=== PATIENT | female | born 1950 | race Caucasian/White ===

== ENCOUNTER → 2016-05-18 18:55 | Outpatient (CLI) | payer OTHER ==
[2016-01-18 17:16] VITALS: BMI 24.6
[~2016-05-18 18:55] MED LIST: ASPIRIN 81 MG E81 MG PO; ATIVAN0.5 MG PO; ATIVAN1 MG PO; BAYER CHEWABLE81 MG PO; IMDUR30 MG PO; NITROSTAT0.4 MG SL; PLAVIX75 MG PO; PREDNISONE20 MG PO; PROTONIX40 MG PO
== END | disposition home or self-care (01) ==
LOC: D.LABREF 18:55
DX: N39.0 Urinary tract infection, site not specified (principal)

== ENCOUNTER → 2016-06-02 11:54 | Outpatient (CLI) | payer OTHER ==
[2016-01-18 17:16] VITALS: BMI 24.6
== END | disposition home or self-care (01) ==
LOC: D.LABREF 11:54
DX: R31.9 Hematuria, unspecified (principal)

== ENCOUNTER → 2016-12-08 18:28 | Outpatient (CLI) | payer OTHER ==
[2016-01-18 17:16] VITALS: BMI 24.6
== END | disposition home or self-care (01) ==
LOC: D.LABREF 18:28
DX: L98.9 Disorder of the skin and subcutaneous tissue, unspecified (principal)

== ENCOUNTER → 2017-01-19 11:40 | Outpatient (CLI) | payer OTHER ==
[2016-01-18 17:16] VITALS: BMI 24.6
== END | disposition home or self-care (01) ==
LOC: D.LABREF 11:40
DX: J40 Bronchitis, not specified as acute or chronic (principal)

== ENCOUNTER → 2017-01-26 08:45 | Outpatient (CLI) | payer OTHER ==
[2016-01-18 17:16] VITALS: BMI 24.6
== END | disposition home or self-care (01) ==
LOC: D.RT 10-26 09:00
DX: J44.9 Chronic obstructive pulmonary disease, unspecified (principal)

== ENCOUNTER 2018-03-24 09:42 | Outpatient (CLI) | payer OTHER ==
[~2018-03-24] VITALS: Ht 157.5 cm; Wt 57.7 kg
--- NOTE | ~2018-03-24 | MORECARE ---
CASE MANAGEMENT DISCHARGE SUMMARY PATIENT: ROBINSON DOUGLAS JHONNY UNIT: [id number] ADM DATE: 03/24/18 AGE: 67 : 52 SEX: F ROOM/BED: D.3356 AUTHOR: FRANCESCO LEVINE PHYSICIAN: REFERRING PHYSICIAN: LENORA RANGEL DO DATE OF SERVICE: 03/24/18 Discharge Plan Patient Name: ROBINSON DOUGLAS Facility: [facility]:[place] : 1950 Planned Disposition: Home Anticipated Discharge Date: Discharge Date: Expected LOS: Initial Reviewer: [email or web address] Initial Review Date: 03/24/2018 Generated: 03/24/18 2:26 pm DCP- Discharge Planning Updated by [email or web address]: Gloria Oliveira on 03/24/18 12:[address] Patient Name: ROBINSON DOUGLAS Admission Status: ER Accout number: [id number] Admission Date: 03-24-2018 : 1950 Admission Diagnosis: Attending: LENORA RANGEL Current LOS: 1 Anticipated DC Date: Planned Disposition: Home Primary Insurance: [employer] Discharge Planning Comments: CM SPOKE WITH PATIENT ABOUT DC PLANNING/NEEDS. STATES PLANS TO DC TO HOME WHEN DISCHARGED. STATES HAS NO NEEDS AND IS INDEPENDANT WITH ADL'S. CM WILL FOLLOW AND ASSIST NEEDED WITH DC PLANNING/NEEDS. Product Support Rep: Gloria Oliveira DCPIA - Discharge Planning Initial Assessment Updated by [email or web address]: Gloria Oliveira on 03/24/18 1:22 pm * Is the patient Alert and Oriented? Yes * PCP JUAN CARLOS * Pharmacy [facility] * Preadmission Environment Home Alone * ADLs Independent * Equipment None * List name and contact numbers for known caregivers / representatives who currently or will assist patient after discharge: MELIDA BROWN, FRIEND, * Community resources currently utilized None * Additional services required to return to the preadmission environment? No * Can the patient safely return to the preadmission environment? Yes * Has this patient been hospitalized within the prior 30 days at any hospital? No Last DP export: 03/24/18 12:19 Patient Name: ROBINSON DOUGLAS Page 17827 at 1327 All edits/amendments must be made on the electronic document DICTATION DATE: 03/24/18 132 MATERIALS SUPERVISOR: CATALINA 03/24/18 132 RPT#: [id number] DC DATE: STATUS: ADM IN [facility] [address] [place] [address] END OF REPORT
--- NOTE | ~2018-03-24 | MORECARE ---
CASE MANAGEMENT DISCHARGE SUMMARY PATIENT: ROBINSON DOUGLAS JHONNY UNIT: [id number] ADM DATE: 03/24/18 AGE: 67 : 52 SEX: F ROOM/BED: D.2116 AUTHOR: FRANCESCO LEVINE PHYSICIAN: REFERRING PHYSICIAN: LENORA RANGEL DO DATE OF SERVICE: 03/24/18 Discharge Plan Patient Name: ROBINSON DOUGLAS Facility: [facility]:[place] : 1950 Planned Disposition: Home Anticipated Discharge Date: Discharge Date: Expected LOS: Initial Reviewer: [email or web address] Initial Review Date: 03/24/2018 Generated: 03/24/18 2:19 pm Patient Name: ROBINSON DOUGLAS Page 40268 at 1319 All edits/amendments must be made on the electronic document DICTATION DATE: 03/24/18 1319 HOSPITAL CLINIC ASSISTANT: CATALINA 03/24/18 1319 RPT#: [id number] DC DATE: STATUS: ADM IN [facility] [address] [place] [address] END OF REPORT
--- NOTE | ~2018-03-24 | MORECARE ---
CASE MANAGEMENT DISCHARGE SUMMARY PATIENT: ROBINSON DOUGLAS JHONNY UNIT: [id number] ADM DATE: 03/24/18 AGE: 67 : 52 SEX: F ROOM/BED: D.2006 AUTHOR: FRANCESCO LEVINE PHYSICIAN: REFERRING PHYSICIAN: LENORA RANGEL DO DATE OF SERVICE: 03/26/18 Discharge Plan Patient Name: ROBINSON DOUGLAS Facility: [facility]:[place] : 1950 Planned Disposition: Home Anticipated Discharge Date: 03/25/18 Discharge Date: 03/25/2018 Expected LOS: 1 Initial Reviewer: [email or web address] Initial Review Date: 03/24/2018 Generated: 03/26/18 9:19 am DCP- Discharge Planning Updated by [email or web address]: Gloria Oliveira on 03/24/18 12:[address] Patient Name: ROBINSON DOUGALS Admission Status: ER Accout number: [id number] Admission Date: 03-24-2018 : 1950 Admission Diagnosis: Attending: LENORA RANGEL Current LOS: 1 Anticipated DC Date: Planned Disposition: Home Primary Insurance: [employer] Discharge Planning Comments: CM SPOKE WITH PATIENT ABOUT DC PLANNING/NEEDS. STATES PLANS TO DC TO HOME WHEN DISCHARGED. STATES HAS NO NEEDS AND IS INDEPENDANT WITH ADL'S. CM WILL FOLLOW AND ASSIST NEEDED WITH DC PLANNING/NEEDS. Dynamometer Tuner: Gloria Oliveira DCPIA - Discharge Planning Initial Assessment Updated by [email or web address]: Gloria Oliveira on 03/24/18 1:22 pm * Is the patient Alert and Oriented? Yes * PCP JUAN CARLOS * Pharmacy [facility] * Preadmission Environment Home Alone * ADLs Independent * Equipment None * List name and contact numbers for known caregivers / representatives who currently or will assist patient after discharge: MELIDA BROWN, FRIEND, * Community resources currently utilized None * Additional services required to return to the preadmission environment? No * Can the patient safely return to the preadmission environment? Yes * Has this patient been hospitalized within the prior 30 days at any hospital? No Last DP export: 03/24/18 12:27 Patient Name: ROBINSON DOUGLAS Page 60393 at 0819 All edits/amendments must be made on the electronic document DICTATION DATE: 03/26/18818 CUFF MATCHER: CATALINA 03/26/18818 RPT#: [id number] DC DATE:03/25/18 STATUS: DIS IN [facility] [address] [place] [address] END OF REPORT
--- NOTE | ~2018-03-24 | HEMODYNAMI ---
PATIENT:ROBINSON DOUGLAS MEDICAL RECORD: [id number] : [birth year] [id number] ADMISSION DATE: 03/24/18 Generatedon:03/25/201811:22 Patient name: ROBINSON DOUGLAS Patient #: [id number] SSN: : 1950 Date of study: 03/25/2018 Page: Of Hemodynamic Procedure Report Patient Data Patient Demographics Procedure consent was obtained First Name: ROBINSON Gender: Female Last Name: MISAEL : 1950 [facility] Initial: JHONNY Age: 67 year(s) Patient #: [id number] Race: Additional ID: [id number] Contact details Address: [address] [place] [address] State: [place] City: [place] Zip code: [address] Past Medical History Allergies Allergen Reaction Date Comments Reported Other allergy 01/19/2016 Red dye, Sulfa, Iodine Other allergy 03/25/2018 red dye, sulfa, iodine Admission Admission Data Admission Date: 03/24/2018 Admission Time: 11:57 Admit Source: Other Room #: D.2116 Lab Results Lab Result Date: 03/25/2018 Lab Result Time: 4:32 Biochemistry Name Units Result Min Max BUN mg/dl 14 --(--*-)-- 7 18 Creatinine mg/dl 0.7 --(*---)-- 0.6 1.3 CBC Name Units Result Min Max Hematocrit % 39.6 -*(----)-- 42 54 Hemoglobin g/dl 12.8 -*(----)-- 13.5 17.5 Procedure Procedure Types Cath Procedure Diagnostic Procedure C [facility] w/Coronaries PCI Procedure Coronary Stent Coronary Stent Initial Procedure Description Procedure Date Procedure Date: 03/25/2018 Procedure Start Time: 11:05 Procedure End Time: 11:17 Procedure Staff Name Function Jarret Caldera MD Performing Physician Elkin Banegas RT Monitor Lucy Sauer RT Marcel Ramires RN Nurse Procedure Data Cath Procedure Fluoroscopy Diagnostic fluoroscopy Total fluoroscopy Time: 1.3 time: 1.3 min min Diagnostic fluoroscopy Total fluoroscopy dose: dose: 70.7 mGy 70.7 mGy Contrast Material Contrast Material Type Amount (ml) Isovue 300 54 Entry Location Entry Primary Successful Side Size Upsize Upsize Entry Closure Succes sful Closure Location (Fr) 1 (Fr) 2 (Fr) Remarks Device Remarks Femoral Right 5 Fr 6 Fr Exoseal artery Short Estimated blood loss: 10 ml Diagnostic catheters Device Type Used For End Catheter Placement MULTIPACK Pigtail 5 Fr Procedure catheter MULTIPACK JL 4.0 5Fr Procedure catheter MULTIPACK 3DRC 5Fr Procedure catheter Procedure Complications No complications Procedure Medications Medication Administration Route Dosage Solumedrol I.V. 125 mg Oxygen etCO2 Nasal cannula 2 l/min Lidocaine 2% added to field 20 Heparin Flush Bag added to field 2 bags (1000units/500ml NS) 0.9% NaCl I.V. 100 ml/hr Zofran I.V. 4 mg Versed I.V. 2 mg Fentanyl I.V. 100 mcg Heparin Bolus I.V. 4000 units Integrilin (Bolus I.V. 5 ml 2mg/ml) Plavix P.O. 300 mg Versed I.V. 1 mg Hemodynamics Rest Heart Rate: 70 (bpm) Snapshots Pre Cath Intra NCS Post Cath Vital Signs Time Heart Resp SPO2 etCO2 NIBP (mmHg) Rhythm Pain Sedation Rate (ipm) (%) (mmHg) Status Level (bpm) 10:57:45 71 18 99 33.1 148/87(107) NSR 0 (11) 10(A) , No pain 11:02:03 73 17 98 31.6 139/81(101) NSR 0 (11) 10(A) , No pain 11:06:19 71 14 100 33.9 127/77(106) NSR 0 (11) 9(A) , No pain 11:10:33 73 14 99 12 133/78(110) NSR 0 (11) 9(A) , No pain 11:14:41 75 15 99 37.7 119/75(95) NSR 0 (11) 10(A) , No pain Medications Time Medication Route Dose Verified Delivered Reason Notes Effectiveness by by 10:55:55 Solumedrol I.V. 125 Jarret Ruiz Per physician mg Werner Ramires RN 10:56:05 Oxygen etCO2 2 Jarret Ruiz used for Nasal l/min Werner Ramires RN procedure cannula 10:56:12 Lidocaine 2% added 20ml Jarret Wheat for local to vial Werner Caldera MD anesthetic field 10:56:18 Heparin Flush added 2 Jarretalbert Wheat used for Bag to bags Werner Caldera MD procedure (1000units/500ml field NS) 10:56:28 0.9% NaCl I.V. 100 Jarret Ruiz Per physician ml/hr Werner Ramires RN 11:02:11 Zofran I.V. 4 mg Jarret Ruiz Per physician for n /v Werner Ramires RN 11:04:42 Versed I.V. 2 mg Jarret Ruiz for sedation Werner Ramires RN 11:04:50 Fentanyl I.V. 100 Jarret Ruiz for sedation mcg Werner Ramires RN 11:07:32 Versed I.V. 1 mg Jarret Ruiz for sedation Werner Ramires RN 11:09:42 Heparin Bolus I.V. 4000 Jarret Ruiz for verif ied units Wenrer Ramires RN anticoagulation with dr caldera 11:09:50 Integrilin I.V. 5 ml Jarret Ruiz for Waste d 5 (Bolus 2mg/ml) Werner Ramires RN antiplatelet ml of therapy vial 11:17:01 Plavix P.O. 300 Jarret Ruiz for mg Werner Ramires RN antiplatelet therapy Procedure Log Time Note 10:35:20 Informed consent obtained and on chart 10:35:22 Admit Source: Other 10:37:08 Diagnostic Cath status Elective 10:37:11 Joseph Ramires RN sent for patient. Start room use. 10:37:12 Time tracking: Regular hours (M-F 7:00 - 5:00) 10:37:15 Plan of Care:Hemodynamics will remain stable., Cardiac rhythm will remain stable., Comfort level will be maintained., Respiratory function will remain adequate., Patient/ family verbilizes understanding of procedure., Procedure tolerated without complication., Recovers from procedure without complications.. 10:37:49 H&P Date Dictated: 03/24/2018 Within 30 days and on chart.. 10:39:28 Lab Result : BUN 14 mg/dl 10:39:28 Lab Result : Creatinine 0.7 mg/dl 10:39:28 Lab Result : Hematocrit 39.6 % 10:39:28 Lab Result : Hemoglobin 12.8 g/dl :39:31 Lab results completed and on chart. 10:47:08 Patient received from Med II to CCL 3 Alert and oriented. Tansferred to table in Supine position. 10:47:09 Warm blankets applied, and maggie hugger turned on for patient comfort. 10:47:09 Correct patient and procedure confirmed by team. 10:47:10 ECG and BP/O2 sat monitors applied to patient. 10:47:11 Pre-procedure instructions explained to patient. 10:47:11 Pre-op teaching completed and patient verbalized understanding. 10:47:12 Family in patients room. 10:47:13 Patient NPO since Midnight. 10:47:39 Patient allergic to Other allergyred dye, sulfa, iodine 10:55:55 Solumedrol 125 mg I.V. was administered by Joseph Ramires RN; Per physician; 10:56:05 Oxygen 2 l/min etCO2 Nasal cannula was administered by Joseph Ramires RN; used for procedure; 10:56:12 Lidocaine 2% 20ml vial added to field was administered by Jarret Caldera MD; for local anesthetic; 10:56:18 Heparin Flush Bag (1000units/500ml NS) 2 bags added to field was administered by Jarret Caldera MD; used for procedure; 10:56:28 0.9% NaCl 100 ml/hr I.V. was administered by Joseph Ramires RN; Per physician; 10:56:31 Vital chart was started 10:59:39 Baseline sample Acquired. 10:59:45 Rhythm: sinus rhythm 10:59:49 Is the patient allergic to Iodine/contrast media? Yes. 10:59:59 Is patient on blood thinner?Yes 11:00:01 ACC The patient was administered the following blood thiners within the last 24 hours: ACCPlavix 11:00:03 Patient diabetic? No. 11:00:12 Previous problem with sedation/anesthesia? Yes nausea 11:00:18 Snore? Yes 11:00:56 Sleep apnea? No 11:00:57 Deviated septum? No 11:00:57 Opens mouth fully? Yes 11:00:58 Sticks out tongue? Yes 11:00:59 Airway obstruction? No ? 11:01:02 Dentures? No ? 11:01:13 Pre procedure: right dorsailis pedis pulse 2+ Normal; easily identifiable; not easily obliterated 11:01:20 IV patent on arrival in right forearm with 0.9% NaCl at [facility]. 11:01:25 Right groin area was prepped with chlora-prep and draped in sterile fashion 11::27 Alarms reviewed by R. N. 11::27 Sharps counted by scrub and verified by R.N. 11:01:29 Use device set Femoral Dx 11:01:30 ACIST Syringe (00387) opened to sterile field. 11:01:30 Bag Decanter (2002S) opened to sterile field. 11:01:31 Medline Cath Pack ([id number]) opened to sterile field. 11:01:32 ACIST Hand Control (79766) opened to sterile field. 11:01:32 ACIST Manifold (13766) opened to sterile field. 11:01:33 Tegaderm 4 x 4 (1626W) opened to sterile field. 11:01:35 SHEATH 5FR [place] (WJC591) opened to sterile field. 11:01:37 DIAGNOSTIC WIRE .035 260cm J wire (025726) opened to sterile field. 11:01:38 DIAGNOSTIC Multipack 5Fr catheter set (EO0763) opened to sterile field. 11:02:11 Zofran 4 mg I.V. was administered by Joseph Ramires RN; Per physician; for n/v 11:02:37 Physician arrived 11::37 --------ALL STOP TIME OUT------ 11:02:37 Final Timeout: patient, procedure, and site verified with staff and physician. All members of the team are in agreement. 11:02:39 Right groin site verified by team. 11:02:42 Physical assessment completed. ASA score P 2 - A patient with mild systemic disease as per Jarret Caldera MD. 11:02:44 Sedation plan: IV Moderate Sedation Medication:Versed, Fentanyl 11:04:42 Versed 2 mg I.V. was administered by Joseph Ramires RN; for sedation; 11:04:50 Fentanyl 100 mcg I.V. was administered by Joseph Ramires RN; for sedation; 11:05:00 Procedure started. 11:05:00 Full Disclosure recording started 11:05:03 Local anesthetic to right femoral artery with Lidocaine 2% by Jarret Caldera MD.INITIAL ACCESS ONLY 11:05:59 A 5 Fr sheath was inserted into the Right Femoral artery 11:06:02 Zero performed for pressure channel P1 11:06:16 A MULTIPACK Pigtail 5 Fr catheter was advanced over the wire and used for Procedure. 11:06:32 LV gram done using GASTON 11:06:34 Injector settings: Ml/sec: 10, Volume: 20, 11:06:39 EF : 55 % 11:06:40 Catheter exchanged over wire. 11:06:44 A MULTIPACK JL 4.0 5Fr catheter was advanced over the wire and used for Procedure. 11:07:10 LCA angiography performed. 11:07:32 Versed 1 mg I.V. was administered by Joseph Ramires RN; for sedation; 11:07:46 Catheter exchanged over wire. 11:07:50 A MULTIPACK 3DRC 5Fr catheter was advanced over the wire and used for Procedure. 11:09:42 Heparin Bolus 4000 units I.V. was administered by Joseph Ramires RN; for anticoagulation; verified with dr caldera 11:09:50 Integrilin (Bolus 2mg/ml) 5 ml I.V. was administered by Joseph Ramires RN; for antiplatelet therapy; Wasted 5 ml of vial 11:10:00 RCA angiography performed. 11:10:10 Catheter removed. 11:10:31 CHOICE PT Extra Support 182cm wire ([id number]) opened to sterile field. 11:10:32 INFLATOR Merit BasixCompak (IE0198) opened to sterile field. 11:10:32 SHEATH 6FR [place] (TGS884) opened to sterile field. 11:10:37 GUIDE 6FR XBLAD 3.5 catheter ([id number]) opened to sterile field. 11:10:45 Sheath upsized to a 6 Fr Short. 11:11:42 6 Fr xblad 3.5 guide catheter was inserted over the wire 11:11:46 choice pt es wire advanced. 11:11:47 Wire advanced across lesion. 11:12:08 Place stent Inflation Number: 1 A YOLIS RX 2.5 x 12 stent ([id number]) was prepped and advanced across the Mid LAD. The stent was deployed at 17 ELKIN for 0:10 (min:sec). 11:12:12 Stent catheter was removed intact over wire. 11:12:12 Wire removed. 11:12:14 Guide catheter removed. 11:12:18 EXOSEAL 6Fr (EX600) opened to sterile field. 11:12:26 Sheath removed intact; hemostasis achieved with Exoseal to the Right Femoral artery. 11:12:29 Procedure ended.(Physican Out) 11:15:27 Fluoroscopy time 01.30 minutes. 11:15:33 Fluoroscopy dose: 70.7 mGy 11:15:33 Flurop Dose total: 70.7 11:15:36 Contrast amount:Isovue 300 54ml. 11:15:38 Sharps counted by scrub and verified by R.N. 11:15:39 Insertion/operative site no bleeding no hematoma. 11:15:42 Post-op/insertion site Right Femoral artery dressed using a 4 x 4 and Tegaderm. 11:15:45 Post right femoral artery:stable, soft, clean and dry 11:15:46 Post Procedure Pulses reassessed and unchanged 11:15:48 Post-procedure physical assessment completed. ASA score P 2 - A patient with mild systemic disease as per Jarret Caldera MD. 11:15:49 Post procedure rhythm: unchanged. 11:15:52 Estimated blood loss: 10 ml 11:15:53 Post procedure instruction explained to patient.Patient verbalizes understanding. 11:16:19 Patient needs reinforcement of post procedure teaching. 11:16:27 Procedure type changed to Cath procedure, Diagnostic procedure, LHC, LHC w/Coronaries, PCI procedure, Coronary Stent, Coronary Stent Initial 11:16:59 Procedure and supply charges have been captured, reviewed, submitted and are correct. 11:17:01 Plavix 300 mg P.O. was administered by Joseph Ramires RN; for antiplatelet therapy; 11:17:04 Procedure Complication : No complications 11:17:06 Vital chart was stopped 11:17:06 See physician's report for complete and final results. 11:17:08 Report given to PCU. 11:17:11 Patient transfered to PCU with Stretcher. 11:17:13 Procedure ended. 11:17:13 Full Disclosure recording stopped 11:17:16 End room use (Document Last) Intervention Summary Intervention Notes Time ActionType Lesion and Equipment Used Action# Pressure Duration Attributes 11:12:08 Place stent Mid LAD YOLIS RX 2.5 x 1 17 00:10 12 stent ([id number]) Device Usage Item Name Manufacture Quantity Catalog Number Hospital Part Current M inimal Lot# / Charge Number Stock Stock Serial# Code ACIST Syringe Acist 1 56525 354698 601958 905330 2 0 (07579) Medical Systems Inc Bag Decanter Microtek 1 2001S 134878 22947 325100 5 (2001S) Medical Inc. Medline Cath Medline 1 [id number] 661708 30435 730706 5 Pack ([id number]) ACIST Hand Acist 1 97863 190165 606972 350382 5 Control Medical (68241) Systems Inc ACIST Manifold Acist 1 18287 499545 937970 056566 5 (66521) Medical Systems Inc Tegaderm 4 x 4 3M 1 1626W 118522 213122 279617 5 (1626W) SHEATH 5FR Terumo 1 FFS215 486241 699017 489399 4 0 [place] (EBW231) DIAGNOSTIC St Pierce 1 184785 965291 205397 475295 3 0 WIRE .035 260cm J wire (097734) DIAGNOSTIC Cardinal 1 HQ3031 735300 99022 865984 3 0 Multipack 5Fr Health catheter set (UP7536) MULTIPACK Cardinal 1 506131 5 Pigtail 5 Fr Health catheter MULTIPACK JL Cardinal 1 746717 5 4.0 5Fr Health catheter MULTIPACK 3DRC Cardinal 1 448267 5 5Fr catheter Health CHOICE PT [place] 1 [id number] 222633 130363 052309 5 Extra Support Scientific 182cm wire ([id number]) INFLATOR Merit Merit 1 BH0944 519020 160383 266581 1 5 Metric Medical Devices (LN2859) SHEATH 6FR Terumo 1 UUV578 080864 199080 802627 4 0 [place] (FHS565) GUIDE 6FR Cardinal 1 [id number] 925668 005670 126770 1 0 XBLAD 3.5 Health catheter ([id number]) YOLIS RX 2.5 x Medtronic 1 [id number] 553862 7482371 197414 5 [id number] 12 stent ([id number]) EXOSEAL 6Fr Cardinal 1 EX600 474370 289845 537837 1 0 (EX600) Health Signature Audit [place] Stage Time Signature Unsigned Intra-Procedure 03/25/2018 Elkin Banegas 11:21:59 AM RT(R) Signatures Monitor : Elkin Banegas RT Signature : Date : Time : [id number] [place] [address]
--- NOTE | ~2018-03-24 | OP ---
PATIENT NAME: ROBINSON DOUGLAS MEDICAL RECORD: [id number] :54 LOCATION:D.M2 D.2116 ADMISSION DATE:03/24/18 SURGEON: MALLY LEON MD DATE OF OPERATION: 03/25/2018 PROCEDURES: 1. PTCA stent LAD. 2. Left heart catheterization. 3. Selective coronary angiography. 4. Left ventriculogram. INDICATION: Angina and coronary artery disease. PROCEDURE IN DETAIL: After informed consent was obtained and after detailed description of risks, benefits as well as alternative therapies, the patient elected to proceed with angiogram and angioplasty. The right femoral area was prepped and draped in normal sterile fashion. Right femoral artery was cannulated via modified Seldinger technique with placement of 6-Uzbek sheath. All catheters exchanged through this sheath. FINDINGS: The left ventriculogram was performed in standard 30-degree GASTON view, reveals good cardiac wall motion throughout all segments. Overall ejection fraction estimated 60%. SELECTIVE CORONARY ANGIOGRAPHY: 1. Left main is with no significant angiographic disease. 2. Left anterior descending has previously placed stents. Previously placed stents are widely patent; however, there is an area between the stents at 75+ percent stenosis. 3. Left circumflex has moderate irregularities, but no flow-limiting stenosis. 4. Right coronary has moderate irregularities, but no flow-limiting stenosis. PTCA STENT OF THE LAD: The stent used was 2.5 x 12 mm Christian taken to 17 atmospheres. Result was 0% residual stenosis. OVERALL IMPRESSION: Successful percutaneous transluminal coronary angioplasty stent of the left anterior descending going from 75% initial stenosis to 0% residual. TRANSINT:[id number] Voice Confirmation ID: [id number] DOCUMENT ID: [id number] MALLY LEON MD at 1704 CC: [id number] DICTATION DATE: 03/25/18 1117 MANAGER PUBLISHING: 03/25/18 1123 DIS IN 03/25/18 [id number] [place] [address]
[2018-03-24] MEDS ORDERED: ZOLOFT25 MG PO (09:50)
[2018-03-24 10:08] LABS: BASOPHILS 0.3 % (0-2); EOSINOPHILS 0.9 % (0-7); HEMATOCRIT 44.1 % (36.0-48.0); IMMATURE GRANULOCYTES 0.5 % (0-5); MCH 30.7 pg (26.0-34.0); MCV 90.2 fL (80.0-100.0); MONOCYTES 6.5 % (2-11); NEUTROPHILS 58.8 % (40-80); PLATELET COUNT 338 10x3/uL (130-400); RBC 4.89 10x6/uL (4.00-5.40); RDW 14.3 % (11.5-14.5); WBC 6.6 10x3/uL (4.8-10.8)
[2018-03-24 10:30] VITALS: BP 154/84
[2018-03-24 10:48] LABS: ALBUMIN 3.7 g/dL (3.4-5.0); ALKALINE PHOSPHATASE 60 U/L (46-116); ALT (SGPT) 17 U/L (10-68); BILIRUBIN - TOTAL 0.39 mg/dL (0.2-1.3); CALC OSMOLALITY 276 mosm/kg (275-300); CALCIUM 9.4 mg/dL (8.5-10.1); CARBON DIOXIDE 26.1 mmol/L (21.0-32.0); CHLORIDE - SERUM 105 mmol/L (98-107); CREATININE - SERUM 0.7 mg/dL (0.6-1.3); GLUCOSE 100 mg/dL (74-106); POTASSIUM - SERUM 4.9 mmol/L (3.5-5.1); PROTEIN - SERUM 7.2 g/dL (6.4-8.2); SODIUM 138 mmol/L (136-145); UREA NITROGEN 16 mg/dL (7-18); eGFR NON AFRICAN AMERICAN 89 mL/min (90-120)
[2018-03-24 10:59] LABS: CKMB 0.6 U/L (0.0-3.6); CREATINE KINASE 35 UL (21-215); PRO BNP 284 pg/mL (0-125); TROPONIN-I < 0.017 ng/mL (0.000-0.060)
[2018-03-24 11:00] VITALS: BP 153/78
[2018-03-24 11:30] VITALS: BP 146/71
[2018-03-24 12:59] LABS: CREATINE KINASE 41 UL (21-215)
[2018-03-24 13:00] LABS: TROPONIN-I < 0.017 ng/mL (0.000-0.060)
[2018-03-24 13:31] VITALS: BP 153/78; BMI 23.3
[2018-03-24 17:36] VITALS: Ht 157.5 cm; Wt 57.7 kg
[2018-03-24 18:32] VITALS: BP 156/81
[2018-03-24 19:03] LABS: CKMB 0.8 U/L (0.0-3.6); CREATINE KINASE 36 UL (21-215); TROPONIN-I < 0.017 ng/mL (0.000-0.060)
[2018-03-24 20:30] VITALS: BP 114/60
[2018-03-25 00:30] VITALS: BP 97/57
[2018-03-25 01:34] LABS: CKMB 0.5 U/L (0.0-3.6); CREATINE KINASE 25 UL (21-215)
[2018-03-25 01:36] LABS: TROPONIN-I < 0.017 ng/mL (0.000-0.060)
[2018-03-25 04:30] VITALS: BP 100/62
[2018-03-25 04:51] LABS: BASOPHILS 0.4 % (0-2); EOSINOPHILS 2.3 % (0-7); HEMATOCRIT 39.6 % (36.0-48.0); HEMOGLOBIN 12.8 g/dL (12-16); IMMATURE GRANULOCYTES 0.4 % (0-5); LYMPHOCYTES 36.2 % (15-50); MCH 29.8 pg (26.0-34.0); MCHC 32.3 g/dL (31.0-37.0); MCV 92.1 fL (80.0-100.0); MEAN PLATELET VOLUME 9.2 fL (7.4-10.4); MONOCYTES 7.6 % (2-11); NEUTROPHILS 53.1 % (40-80); PLATELET COUNT 301 10x3/uL (130-400); RDW 14.1 % (11.5-14.5); WBC 7.5 10x3/uL (4.8-10.8)
[2018-03-25 05:05] LABS: ALBUMIN 3.3 g/dL (3.4-5.0); ALKALINE PHOSPHATASE 53 U/L (46-116); ALT (SGPT) 16 U/L (10-68); BILIRUBIN - TOTAL 0.45 mg/dL (0.2-1.3); CALC OSMOLALITY 278 mosm/kg (275-300); CALCIUM 9.4 mg/dL (8.5-10.1); CARBON DIOXIDE 28.9 mmol/L (21.0-32.0); CHLORIDE - SERUM 105 mmol/L (98-107); CREATININE - SERUM 0.7 mg/dL (0.6-1.3); GLUCOSE 101 mg/dL (74-106); MAGNESIUM - SERUM 1.8 mg/dL (1.8-2.4); POTASSIUM - SERUM 4.4 mmol/L (3.5-5.1); PROTEIN - SERUM 6.6 g/dL (6.4-8.2); SODIUM 139 mmol/L (136-145); UREA NITROGEN 14 mg/dL (7-18); eGFR NON AFRICAN AMERICAN 89 mL/min (90-120)
[2018-03-25 07:54] VITALS: BP 119/56
[2018-03-25] MEDS ORDERED: PLAVIX75 MG PO (13:53)
[2018-03-25] MEDS ORDERED: PROTONIX40 MG PO (13:55)
== END 2018-03-25 16:19 | disposition home or self-care (01) ==
LOC: OBSVTIME → D.ER 09:42 → D.OPS 09:42 → D.ER 11:57 → OBSVTIME 11:57 → D.M2 11:57 → D.EDHOLD 11:57 → D.M2 12:16 → D.EDHOLD 12:16 → D.ER 12:46 → EDSTATUS 14:01 → D.M2 03-25 16:19 → D.OPS 03-25 16:19
PROVIDERS: Family Medicine
DX: I25.119 Atherosclerotic heart disease of native coronary artery with unspecified angina pectoris (principal); K21.9 Gastro-esophageal reflux disease without esophagitis; F41.9 Anxiety disorder, unspecified; Z72.0 Tobacco use
CPT/HCPCS: 93458; C9600

== ENCOUNTER → 2018-04-02 16:46 | Outpatient (CLI) | payer OTHER ==
[2018-03-24 17:36] VITALS: BMI 23.3
[~2018-04-02 16:46] MED LIST changes: +ZOLOFT25 MG PO
== END | disposition home or self-care (01) ==
LOC: D.MAMMO 08:30
DX: Z12.31 Encounter for screening mammogram for malignant neoplasm of breast (principal)

== ENCOUNTER → 2018-09-30 08:47 | Outpatient (CLI) | payer OTHER ==
[2018-03-24 17:36] VITALS: BMI 23.3
== END | disposition home or self-care (01) ==
LOC: D.RT 08:47
PROVIDERS: ATTEND Internal Medicine Pulmonary Disease
DX: J44.9 Chronic obstructive pulmonary disease, unspecified (principal)

== ENCOUNTER → 2019-04-14 08:00 | Outpatient (CLI) | payer OTHER ==
[2018-03-24 17:36] VITALS: BMI 23.3
== END | disposition home or self-care (01) ==
LOC: D.MAMMO 02-26 09:00
PROVIDERS: ATTEND Family Medicine
DX: Z12.31 Encounter for screening mammogram for malignant neoplasm of breast (principal); Z00.00 Encounter for general adult medical examination without abnormal findings

== ENCOUNTER → 2019-09-27 10:56 | Outpatient (CLI) | payer OTHER ==
[2018-03-24 17:36] VITALS: BMI 23.3
== END | disposition home or self-care (01) ==
LOC: D.LABREF 10:56
PROVIDERS: ATTEND Internal Medicine Pulmonary Disease
DX: Z11.59 Encounter for screening for other viral diseases (principal)

== ENCOUNTER → 2019-09-29 08:48 | Outpatient (CLI) | payer OTHER ==
[2018-03-24 17:36] VITALS: BMI 23.3
== END | disposition home or self-care (01) ==
LOC: D.RT 04-01 11:00 → D.RAD 04-01 11:45 → D.RT 08:48
PROVIDERS: ATTEND Internal Medicine Pulmonary Disease
DX: J44.9 Chronic obstructive pulmonary disease, unspecified (principal)

== ENCOUNTER → 2019-10-01 10:49 | Outpatient (CLI) | payer OTHER ==
[2018-03-24 17:36] VITALS: BMI 23.3
== END | disposition home or self-care (01) ==
LOC: D.HCCARDIO 10:30
PROVIDERS: ATTEND Internal Medicine Cardiovascular Disease
DX: I25.119 Atherosclerotic heart disease of native coronary artery with unspecified angina pectoris (principal)